=== PATIENT | male | born 1945 | race Caucasian/White ===

== ENCOUNTER 2019-08-26 23:30 | Inpatient (IN) ==
[2019-08-27 00:49] LABS: INR 1.1
[2019-08-27 00:55] LABS: Basophils % 0.2 % (0.0-0.8); Hematocrit 39.7 VOL% (42.0-52.0); Hemoglobin 12.3 GM/DL (14.0-18.0); Immature Granulocytes % 0.6 %; Immature Granulocytes Absolute 0.08 #; Lymphocytes # 0.7 10*3/uL (1.4-4.0); Lymphocytes % 5.4 % (21.2-54.2); Mean Corpuscular Volume 78.6 FL (87-102); Mean Platelet Volume 10.5 FL (9.6-12.0); Monocytes % 3.5 % (1.7-12.7); Neutrophils % 90.3 % (38.7-73.9); Platelet Count 102 T/CUMM (130-400); Red Blood Count 5.05 MC/CUMM (3.8-5.5); Red Cell Distribution Width 17.5 % (9.3-17.3); White Blood Count 12.8 T/CUMM (4-12)
[2019-08-27 01:14] LABS: Apearance,Urine CLEAR (Clear); Bilirubin,Urine Negative (Negative); Blood, Urine Moderate mg/dL (Negative); Glucose,Urine (UA) Negative (Negative); Hyaline Casts,Urine 3 /LPF (0-3); Ketones,Urine Negative (Negative); Mucus,Urine Occasional /LPF (Occasional); Nitrite,Urine Negative (Negative); Protein,Urine Negative; RBC,Urine 112 /HPF (0-4); Squamous Epithelial Cell,Urine Occasional /HPF (0-10); Urine Color Yellow (Yellow); Urine Specific Gravity 1.018 (1.001-1.035); Urine Urobilinogen < 2.0 EU/DL (0.2-1.0); WBC,Urine 2 /HPF (0-6)
[2019-08-27 01:25] LABS: Albumin 2.1 G/DL (3.4-5.0); Bilirubin,Total 1.5 MG/DL (0.2-1.0); Calcium 10.1 MG/DL (8.5-10.1); Osmolality,Calculated 275.7 MOS/KG (273-304); Total Protein 6.2 G/DL (6.4-8.3)
[2019-08-27] MEDS ORDERED: LACTULOSE 20 GM/30 ML UDCUP PO STA (04:12)
[2019-08-27] MEDS ORDERED: DOCUSATE SODIUM 100 MG CAPSULE PO PRN (06:05)
[2019-08-27] MEDS ORDERED: GLUCAGON 1 MG VIAL IM PRN (06:05)
[2019-08-27] MEDS ORDERED: ONDANSETRON 4 MG/2 ML VIAL IV PRN (06:05)
[2019-08-27] MEDS ORDERED: ACETAMINOPHEN 325 MG TABLET PO PRN (06:05)
[2019-08-27] MEDS ORDERED: POLYETHYLENE GLYCOL POWDER 17 GM PACK PO PRN (06:05)
[2019-08-27] MEDS ORDERED: ALUMINUM/MAGNES/SIMETH MAX STR 30 ML UDCUP PO PRN (06:05)
[2019-08-27] MEDS ORDERED: DEXTROSE 10% 250 ML BAG IV PRN (06:11)
[2019-08-27] MEDS: LEVOTHYROXINE 200 MCG TABLET PO SCH (06:31)
[2019-08-27] MEDS: SODIUM CHLORIDE 0.9% 1,000 ML IV SCH (06:32)
[2019-08-27] MEDS: LACTULOSE 20 GM/30 ML UDCUP PO SCH ×4 (06:42→23:46)
[2019-08-27] MEDS: lisinopriL 10 MG TABLET PO SCH (09:40)
[2019-08-27] MEDS: CHOLECALCIFEROL 1,000 UNIT TABLET PO SCH (09:40)
[2019-08-27] MEDS: carvediloL 6.25 MG TABLET PO SCH ×2 (09:40→20:33)
[2019-08-27] MEDS: MAGNESIUM OXIDE 400 MG TABLET PO SCH (09:40)
[2019-08-27] MEDS: PANTOPRAZOLE 40 MG TABLET PO SCH ×2 (09:40→20:33)
[2019-08-27] MEDS ORDERED: FUROSEMIDE 20 MG/2 ML VIAL IV ONE (13:18)
[2019-08-27] MEDS ORDERED: ATORVASTATIN 40 MG TABLET PO SCH (21:00)
[2019-08-28] MEDS: SODIUM CHLORIDE 0.9% 1,000 ML IV SCH (02:24)
[2019-08-28] MEDS: LACTULOSE 20 GM/30 ML UDCUP PO SCH ×3 (06:20→18:34)
[2019-08-28 06:29] LABS: Basophils % 0.1 % (0.0-0.8); Eosinophils # 0.3 10*3/uL (0.0-0.87); Eosinophils % 2.2 % (0.00-10.9); Hematocrit 41.4 VOL% (42.0-52.0); Hemoglobin 12.7 GM/DL (14.0-18.0); Immature Granulocytes % 0.5 %; Immature Granulocytes Absolute 0.07 #; Lymphocytes # 1.2 10*3/uL (1.4-4.0); Lymphocytes % 8.9 % (21.2-54.2); Mean Corpuscular HGB Conc 30.7 GM/DL (32-36); Mean Corpuscular Volume 78.7 FL (87-102); Mean Platelet Volume 10.1 FL (9.6-12.0); Monocytes % 6.6 % (1.7-12.7); Neutrophils % 81.7 % (38.7-73.9); Platelet Count 114 T/CUMM (130-400); Red Blood Count 5.26 MC/CUMM (3.8-5.5); Red Cell Distribution Width 17.9 % (9.3-17.3); White Blood Count 13.6 T/CUMM (4-12)
[2019-08-28] MEDS: lisinopriL 10 MG TABLET PO SCH (08:46)
[2019-08-28] MEDS: MAGNESIUM OXIDE 400 MG TABLET PO SCH (08:46)
[2019-08-28] MEDS: PANTOPRAZOLE 40 MG TABLET PO SCH ×2 (08:46→21:52)
[2019-08-28] MEDS: carvediloL 6.25 MG TABLET PO SCH ×2 (08:46→21:52)
[2019-08-28] MEDS: CHOLECALCIFEROL 1,000 UNIT TABLET PO SCH (08:46)
[2019-08-28] MEDS ORDERED: FUROSEMIDE 20 MG/2 ML VIAL IV ONE (09:39)
[2019-08-28] MEDS: CEFEPIME 1,000 MG in SODIUM CHLORIDE 0.9% 100 ML IV SCH ×3 (11:28→21:56)
[2019-08-28] MEDS: MORPHINE 4 MG/1 ML VIAL IV PRN ×2 (11:28→21:53)
[2019-08-28 18:18] LABS: Albumin 2.1 G/DL (3.4-5.0); Bilirubin,Total 1.9 MG/DL (0.2-1.0); Calcium 10.5 MG/DL (8.5-10.1); Osmolality,Calculated 271.5 MOS/KG (273-304); Thyroid Stimulating Hormone 0.644 uIU/ml (0.358-3.74); Total Protein 5.9 G/DL (6.4-8.3)
[2019-08-29] MEDS: SODIUM CHLORIDE 0.9% 1,000 ML IV SCH (00:58)
[2019-08-29] MEDS: LACTULOSE 20 GM/30 ML UDCUP PO SCH ×4 (01:00→17:46)
[2019-08-29] MEDS: CEFEPIME 1,000 MG in SODIUM CHLORIDE 0.9% 100 ML IV SCH ×4 (03:20→21:43)
[2019-08-29 06:16] LABS: Basophils % 0.1 % (0.0-0.8); Eosinophils # 0.1 10*3/uL (0.0-0.87); Eosinophils % 0.9 % (0.00-10.9); Hematocrit 38.9 VOL% (42.0-52.0); Hemoglobin 12.2 GM/DL (14.0-18.0); Immature Granulocytes % 0.4 %; Immature Granulocytes Absolute 0.06 #; Lymphocytes # 1.2 10*3/uL (1.4-4.0); Lymphocytes % 8.9 % (21.2-54.2); Mean Corpuscular HGB Conc 31.4 GM/DL (32-36); Mean Corpuscular Volume 78.7 FL (87-102); Monocytes % 5.7 % (1.7-12.7); Platelet Count 73 T/CUMM (130-400); Red Blood Count 4.94 MC/CUMM (3.8-5.5); Red Cell Distribution Width 17.8 % (9.3-17.3); White Blood Count 13.8 T/CUMM (4-12)
[2019-08-29] MEDS: LEVOTHYROXINE 200 MCG TABLET PO SCH (06:16)
[2019-08-29 06:39] LABS: Burr Cells Slight; Hypochromasia 1+; Microcytosis 1+
[2019-08-29 06:40] LABS: Ovalocytes Slight; Platelet Estimate Decreased; Target Cells Slight
[2019-08-29] MEDS: MORPHINE 4 MG/1 ML VIAL IV PRN (07:56)
[2019-08-29] MEDS: MAGNESIUM OXIDE 400 MG TABLET PO SCH (08:51)
[2019-08-29] MEDS: CHOLECALCIFEROL 1,000 UNIT TABLET PO SCH (08:51)
[2019-08-29] MEDS: PANTOPRAZOLE 40 MG TABLET PO SCH ×2 (08:51→21:45)
[2019-08-29] MEDS: lisinopriL 10 MG TABLET PO SCH (08:52)
[2019-08-29] MEDS: carvediloL 6.25 MG TABLET PO SCH ×2 (08:52→21:00)
[2019-08-29] MEDS ORDERED: SODIUM PHOSPHATE ENEMA 133 ML BOTTLE RECTAL ONE (18:41)
[2019-08-29] MEDS ORDERED: KETOROLAC 15 MG/1 ML VIAL IV PRN (22:08)
[2019-08-29] MEDS ORDERED: SODIUM CHLORIDE 0.9% 500 ML IV ONE (22:09)
[2019-08-30] MEDS: LACTULOSE 20 GM/30 ML UDCUP PO SCH ×3 (00:05→13:31)
[2019-08-30] MEDS: CEFEPIME 1,000 MG in SODIUM CHLORIDE 0.9% 100 ML IV SCH ×2 (03:45→09:06)
[2019-08-30 06:49] LABS: Basophils % 0.1 % (0.0-0.8); Eosinophils # 0.1 10*3/uL (0.0-0.87); Eosinophils % 0.9 % (0.00-10.9); Hematocrit 35.5 VOL% (42.0-52.0); Hemoglobin 11.3 GM/DL (14.0-18.0); Immature Granulocytes % 0.3 %; Immature Granulocytes Absolute 0.04 #; Lymphocytes # 1.1 10*3/uL (1.4-4.0); Mean Corpuscular HGB Conc 31.8 GM/DL (32-36); Mean Corpuscular Volume 77.7 FL (87-102); Mean Platelet Volume 11.9 FL (9.6-12.0); Monocytes % 3.5 % (1.7-12.7); Neutrophils % 86.2 % (38.7-73.9); Red Blood Count 4.57 MC/CUMM (3.8-5.5); Red Cell Distribution Width 17.8 % (9.3-17.3); White Blood Count 11.8 T/CUMM (4-12)
[2019-08-30 06:51] LABS: Platelet Count 65 T/CUMM (130-400)
[2019-08-30] MEDS: CHOLECALCIFEROL 1,000 UNIT TABLET PO SCH ×2 (09:07→09:17)
[2019-08-30] MEDS: MAGNESIUM OXIDE 400 MG TABLET PO SCH ×2 (09:07→09:41)
[2019-08-30] MEDS: PANTOPRAZOLE 40 MG TABLET PO SCH ×2 (09:07→09:41)
[2019-08-30] MEDS: SODIUM CHLORIDE 0.9% 1,000 ML IV SCH ×2 (09:44→14:54)
[2019-08-30 12:34] VITALS: BP 89/51
== END 2019-08-30 14:47 | disposition hospice, home (50) | DRG 435 ==
LOC: EDUNIT# → EDBD → N.ED 23:30 → N.EDINP 23:30 → N.3E 08-27 05:54
PROVIDERS: ADMIT Internal Medicine; ATTEND Internal Medicine